=== PATIENT | male | born 1980 | race African-American/Black ===

== ENCOUNTER 2016-07-06 11:42 | Emergency (ER) | payer BC ==
[2016-07-06 11:47] VITALS: BP 124/71
--- NOTE | 2016-07-06 11:48 | ER Document Report ---
ED Medical Screen (RME) - General Stated Complaint: SKIN PROBLEM Mode of Arrival: Ambulatory Information source: Patient Notes: Pt presents to the ED with c/o skin irritation to his groin area, reports broken skin to his penis, testicles swollen, denies problems with voiding, denies penile discharge. Reports never happened to him before. Patient reports skin irritation to thigh folds, gluteal crease. I have greeted and performed a rapid initial assessment of this patient. A comprehensive ED assessment and evaluation of the patient, analysis of test results and completion of the medical decision making process will be conducted by additional ED providers. - Related Data Allergies/Adverse Reactions: No Known Allergies Allergy (Verified 01/27/12 23:22) Past Medical History - Past Medical History Cardiac Medical History: Denies: Hx Heart Attack, Hx Hypertension Pulmonary Medical History: Denies: Hx Asthma Neurological Medical History: Denies: Hx Cerebrovascular Accident, Hx Seizures GI Medical History: Denies: Hx Hepatitis, Hx Hiatal Hernia, Hx Ulcer Infectious Medical History: Denies: Hx Hepatitis Past Surgical History: Denies: Hx Open Heart Surgery, Hx Pacemaker - Immunizations Immunizations up to date: No Hx Diphtheria, Pertussis, Tetanus Vaccination: No
--- NOTE | 2016-07-06 11:58 | ER Document Report ---
ED Skin Rash/Insect Bite/Abscs - General Chief Complaint: Headache Stated Complaint: SKIN PROBLEM Mode of Arrival: Ambulatory Information source: Patient TRAVEL OUTSIDE OF THE [place] IN LAST 30 DAYS: No - HPI Patient complains to provider of: Skin rash/lesion, Tender/swollen area Onset: Other - SEVERAL DAYS Onset/Duration: Gradual Quality of pain: Other - ITCHY Severity: Mild Skin Character: Erythema, Rash, Tenderness, Warm Skin Temperature: Warm Quality of rash: Itchy Identify cause: No Medication exposure: denies: Antibiotic, Aspirin, ANGEL LUIS / ARB inhibitor, NSAID Exacerbated by: Movement Relieved by: Denies Similar symptoms previously: No Recently seen / treated by doctor: No Notes: EMPLOYED [employer]FA[employer]ING [employer] - Related Data Allergies/Adverse Reactions: No Known Allergies Allergy (Verified 07/06/16 11:51) Past Medical History - General Information source: Patient - Social History Smoking Status: Current Every Day Smoker Cigarette use (# per day): Yes Chew tobacco use (# tins/day): No Smoking Education Provided: No Frequency of alcohol use: None Drug Abuse: None Lives with: Spouse/Significant other Family History: DM Patient has suicidal ideation: No Patient has homicidal ideation: No - Past Medical History Cardiac Medical History: Reports: None Denies: Hx Heart Attack, Hx Hypertension Pulmonary Medical History: Reports: None Denies: Hx Asthma EENT Medical History: Reports: None Neurological Medical History: Reports: None. Denies: Hx Cerebrovascular Accident, Hx Seizures Endocrine Medical History: Reports: None. Denies: Hx Diabetes Mellitus Type 1, Hx Diabetes Mellitus Type 2 Renal/ Medical History: Reports: None. Denies: Hx Peritoneal Dialysis Malignancy Medical History: Reports None GI Medical History: Reports: None. Denies: Hx Hepatitis, Hx Hiatal Hernia, Hx Ulcer Musculoskeltal Medical History: Reports None Psychiatric Medical History: Reports: None Infectious Medical History: Denies: Hx Hepatitis Past Surgical History: Denies: Hx Open Heart Surgery, Hx Pacemaker - Immunizations Immunizations up to date: No Hx Diphtheria, Pertussis, Tetanus Vaccination: No Review of Systems - Review of Systems Constitutional: No symptoms reported EENT: No symptoms reported Cardiovascular: No symptoms reported Respiratory: No symptoms reported Gastrointestinal: No symptoms reported Genitourinary: No symptoms reported Male Genitourinary: See HPI Musculoskeletal: No symptoms reported Skin: See HPI Neurological/Psychological: No symptoms reported Physical Exam - Vital signs Vitals: Temp Pulse Resp BP Pulse Ox 99.2 F 88 20 124/71 100 07/06/16 11:47 07/06/16 11:47 07/06/16 11:47 07/06/16 11:47 07/06/16 11:47 Interpretation: Normal - General General appearance: Appears well, Alert In distress: None - HEENT Head: Normocephalic Eyes: Normal Conjunctiva: Normal Ears: Normal Nasal: Normal Mouth/Lips: Normal Mucous membranes: Normal - Respiratory Respiratory status: No respiratory distress - Cardiovascular Rhythm: Regular - Abdominal Inspection: Normal Distension: No distension - Genitourinary Inspection: Other - EDEMA OF PENILE & SCROTAL SKIN.. No: Penile discharge Tenderness: Nontender Scrotum: Redness. No: Hot to touch Notes: MILDLY ERYTHEMATOUS, SCALY ERUPTION INVOLVING INTERTRIGINOUS AREAS OF SKIN. NO OPEN LESIONS. - Neurological Neuro grossly intact: Yes Cognition: Normal Orientation: AAOx4 - Psychological Associated symptoms: Normal affect, Normal mood - Skin Skin Temperature: Warm Skin Moisture: Dry Skin Color: Normal Skin Turgor: Elastic Course - Vital Signs Vital signs: Temp Pulse Resp BP Pulse Ox 99.2 F 88 20 124/71 100 07/06/16 11:47 07/06/16 11:47 07/06/16 11:47 07/06/16 11:47 07/06/16 11:47 Discharge - Discharge Clinical Impression: Intertriginous candidiasis Condition: Stable Disposition: HOME, SELF-CARE Instructions: Skin Fungus ([facility]) Additional Instructions: KEEP AREA OF RASH DRY AND COOL, MUCH POSSIBLE. USE NYSTATIN CREAM DIRECTED. FOLLOW UP IF NOT IMPROVED IN 48 HOURS. Prescriptions: Nystatin 30 gm TP BID #30 gm
== END 2016-07-06 12:25 | disposition home or self-care (01) ==
LOC: ER 11:42
DX: B37.2 Candidiasis of skin and nail (principal); R51 Headache; F17.210 Nicotine dependence, cigarettes, uncomplicated
CPT/HCPCS: 82962; 99283

== ENCOUNTER 2016-07-10 13:20 | Emergency (ER) | payer BC ==
[2016-07-10 13:56] VITALS: BP 117/66
--- NOTE | 2016-07-10 14:03 | ER Document Report ---
ED Medical Screen (RME) - General TRAVEL OUTSIDE OF THE [place] IN LAST 30 DAYS: No - General Stated Complaint: ITCHING IN GENITAL AREA Notes: 35 yo male c/o genital rash. pt was seen in ED 4 days ago for same, DX with tinea cruris. taking meds as prescribed reports rash is improving, but needs a work note for today. (ALON[facility]) - Related Data Allergies/Adverse Reactions: No Known Allergies Allergy (Verified 07/10/16 14:00) Past Medical History - Past Medical History Cardiac Medical History: Denies: Hx Heart Attack, Hx Hypertension Pulmonary Medical History: Denies: Hx Asthma Neurological Medical History: Denies: Hx Cerebrovascular Accident, Hx Seizures Endocrine Medical History: Denies: Hx Diabetes Mellitus Type 1, Hx Diabetes Mellitus Type 2 Renal/ Medical History: Denies: Hx Peritoneal Dialysis GI Medical History: Denies: Hx Hepatitis, Hx Hiatal Hernia, Hx Ulcer Infectious Medical History: Denies: Hx Hepatitis Past Surgical History: Denies: Hx Open Heart Surgery, Hx Pacemaker - Immunizations Immunizations up to date: No Hx Diphtheria, Pertussis, Tetanus Vaccination: No Doctor's Discharge - Discharge Clinical Impression: Intertriginous candidiasis Condition: Stable Disposition: HOME, SELF-CARE Instructions: Family Physicians / Practices Additional Instructions: Please keep the affected area clean and dry as much as possible. Please wear loosefitting close cotton is better then nylon and light colored is better than dark until the rash heals. Mycolog cream as ordered. If there is not improved within the next 7 days please return to the ED or with a primary doctor for follow-up care. FOLLOW-UP CARE: If you have been referred to a physician for follow-up care, call the physician s office for an appointment as you were instructed or within the next two days. If you experience worsening or a significant change in your symptoms, notify the physician immediately or return to the Emergency Department at any time for re-evaluation. Prescriptions: Nystatin/Triamcin [Mycolog-II Ointment] 1 applic TP BID #1 tube Forms: Return to Work
--- NOTE | 2016-07-10 16:37 | ER Document Report ---
ED Skin Rash/Insect Bite/Abscs - General Chief Complaint: Other Stated Complaint: POSSIBLE RASH Time seen by provider: 16:36 TRAVEL OUTSIDE OF THE [place] IN LAST 30 DAYS: No - HPI Patient complains to provider of: Skin rash/lesion - Groin scrotum and penis Onset: Last week Onset/Duration: Gradual Quality of pain: Burning - Itching Severity: Mild Pain Level: 2 Skin Character: Rash Quality of rash: Itchy, Burning Identify cause: Yes Exacerbated by: Denies Relieved by: Denies Similar symptoms previously: Yes Recently seen / treated by doctor: Yes - Related Data Allergies/Adverse Reactions: No Known Allergies Allergy (Verified 07/10/16 14:00) Past Medical History - General Information source: Patient - Social History Smoking Status: Current Every Day Smoker Cigarette use (# per day): Yes - 10 cigarettes a day Chew tobacco use (# tins/day): No Smoking Education Provided: Yes - less than 1 minute Frequency of alcohol use: Occasional Drug Abuse: None Occupation: sanitation Lives with: Parents Family History: Arthritis, DM, Hyperlipidemia, Hypertension Patient has suicidal ideation: No Patient has homicidal ideation: No - Past Medical History Cardiac Medical History: Reports: None Pulmonary Medical History: Reports: None EENT Medical History: Reports: None Neurological Medical History: Reports: None Endocrine Medical History: Reports: None Renal/ Medical History: Reports: None Malignancy Medical History: Reports None GI Medical History: Reports: None Musculoskeltal Medical History: Reports None Skin Medical History: Reports None Psychiatric Medical History: Reports: None Traumatic Medical History: Reports: None Infectious Medical History: Reports: None Surgical Hx: Negative - Immunizations Immunizations up to date: No Hx Diphtheria, Pertussis, Tetanus Vaccination: No Review of Systems - Review of Systems Constitutional: No symptoms reported EENT: No symptoms reported Cardiovascular: No symptoms reported Respiratory: No symptoms reported Gastrointestinal: No symptoms reported Genitourinary: No symptoms reported Male Genitourinary: Other - Rash to groin scrotum and penis Musculoskeletal: No symptoms reported Skin: Rash - Groin scrotum and penis Hematologic/Lymphatic: No symptoms reported Neurological/Psychological: No symptoms reported -: Yes All other systems reviewed and negative Physical Exam - Vital signs Vitals: Temp Pulse Resp BP Pulse Ox 98.7 F 79 16 117/66 99 07/10/16 13:55 07/10/16 13:55 07/10/16 13:55 07/10/16 13:55 07/10/16 13:55 Interpretation: Normal - General General appearance: Appears well, Alert - HEENT Head: Normocephalic, Atraumatic Eyes: Normal Pupils: PERRL - Respiratory Respiratory status: No respiratory distress Chest status: Nontender Breath sounds: Normal Chest palpation: Normal - Cardiovascular Rhythm: Regular Heart sounds: Normal auscultation Murmur: No - Abdominal Inspection: Normal Distension: No distension Bowel sounds: Normal Tenderness: Nontender Organomegaly: No organomegaly - Genitourinary Tenderness: Other - Rash to penis scrotum and surrounding area Cremasteric reflex: Normal Scrotum: Normal - Back Back: Normal, Nontender - Extremities General upper extremity: Normal inspection, Nontender, Normal color, Normal ROM , Normal temperature General lower extremity: Normal inspection, Nontender, Normal color, Normal ROM , Normal temperature, Normal weight bearing. No: Nitin's sign - Neurological Neuro grossly intact: Yes Cognition: Normal Orientation: AAOx4 Otis Coma Scale Eye Opening: Spontaneous Otis Coma Scale Verbal: Oriented Otis Coma Scale Motor: Obeys Commands Otis Coma Scale Total: 15 Speech: Normal Motor strength normal: LUE, RUE, LLE, RLE Sensory: Normal - Psychological Associated symptoms: Normal affect, Normal mood - Skin Skin Temperature: Warm Skin Moisture: Dry Skin Color: Normal Location of irregularity: Other - Groin scrotum and penis Character of irregularity: Fine, Erythematous Irregularity with: Tenderness Course - Vital Signs Vital signs: Temp Pulse Resp BP Pulse Ox 98.7 F 79 16 117/66 99 07/10/16 13:55 07/10/16 13:55 07/10/16 13:55 07/10/16 13:55 07/10/16 13:55 Discharge - Discharge Clinical Impression: Intertriginous candidiasis Condition: Stable Disposition: HOME, SELF-CARE Instructions: Family Physicians / Practices Additional Instructions: Please keep the affected area clean and dry as much as possible. Please wear loosefitting close cotton is better then nylon and light colored is better than dark until the rash heals. Mycolog cream as ordered. If there is not improved within the next 7 days please return to the ED or with a primary doctor for follow-up care. FOLLOW-UP CARE: If you have been referred to a physician for follow-up care, call the physician s office for an appointment as you were instructed or within the next two days. If you experience worsening or a significant change in your symptoms, notify the physician immediately or return to the Emergency Department at any time for re-evaluation. Prescriptions: Nystatin/Triamcin [Mycolog-II Ointment] 1 applic TP BID #1 tube Forms: Return to Work
== END 2016-07-10 16:50 | disposition home or self-care (01) ==
LOC: ER 13:20
DX: B37.2 Candidiasis of skin and nail (principal); F17.210 Nicotine dependence, cigarettes, uncomplicated; Z71.6 Tobacco abuse counseling
CPT/HCPCS: 99282